=== PATIENT | male | born 1960 | race Caucasian/White ===

== ENCOUNTER 2023-05-14 20:50 | Inpatient (IN) | payer OTHER ==
[2023-05-14 09:38] VITALS: BMI 27.2
[2023-05-14] MEDS ORDERED: hydrOXYzine PAMOATE 25 MG CAPSULE (FP) PO PRN (21:50)
[2023-05-14] MEDS ORDERED: NALOXONE HCL 0.4 MG/ML VIAL IM PRN (21:50)
[2023-05-14] MEDS ORDERED: MAGNESIUM HYDROX 2400MG/30ML ORAL SUSPENSION 30 ML CUP PO PRN (21:50)
[2023-05-14] MEDS ORDERED: NALOXONE HCL (KLOXXADO) 8 MG SPRAY NS PRN (21:50)
[2023-05-14] MEDS ORDERED: MAG HYDROX/AL HYDROX/SIMETH 30 ML UNIT-DOSE CUP PO PRN (21:50)
[2023-05-14] MEDS ORDERED: NICOTINE POLACRILEX 2 MG GUM BUC PRN (21:50)
[2023-05-14] MEDS ORDERED: BENZONATATE 200 MG CAPSULE PO PRN (21:50)
[2023-05-14] MEDS ORDERED: IBUPROFEN 600 MG TABLET (FP) PO PRN (21:50)
[2023-05-14] MEDS ORDERED: guaiFENesin 600 MG TABLET.ER (FP) PO PRN (21:50)
[2023-05-14] MEDS ORDERED: BISMUTH SUBSALICYLATE 524 MG/30 ML PO PRN (21:50)
[2023-05-14] MEDS ORDERED: BENZOCAINE/MENTHOL (CHLORASEPTIC ) LOZENGE MM PRN (21:50)
[2023-05-14] MEDS ORDERED: METHOCARBAMOL 500 MG TABLET PO PRN (21:50)
[2023-05-14] MEDS ORDERED: ONDANSETRON *ODT* 4 MG TABLET SL PRN (21:50)
[2023-05-14] MEDS ORDERED: POLYETHYLENE GLYCOL (HEALTHYLAX) 3350 17 GM PACKET PO PRN (21:50)
[2023-05-14] MEDS ORDERED: LOPERAMIDE HCL 2 MG CAPSULE PO PRN (21:50)
[2023-05-14] MEDS ORDERED: IBUPROFEN 400 MG TABLET (FP) PO PRN (21:50)
[2023-05-14] MEDS ORDERED: ACETAMINOPHEN 325 MG TABLET (FP) PO PRN (21:50)
[2023-05-14] MEDS ORDERED: chlordiazePOXIDE HCL 25 MG CAPSULE PO PRN (21:53)
[2023-05-14] MEDS ORDERED: cloNIDine HCL 0.1 MG TABLET PO ONE (22:06)
[2023-05-14] MEDS ORDERED: TRIMETHOBENZAMIDE HCL 200MG/2ML INJ IM ONE (22:40)
[2023-05-14] MEDS: MELATONIN 5 MG TABLETS PO SCH (22:41)
[2023-05-14] MEDS: THIAMINE HCL 100 MG TABLET (FP) PO SCH (22:41)
[2023-05-14] MEDS ORDERED: chlordiazePOXIDE HCL 25 MG CAPSULE ONE (22:42)
[2023-05-14] MEDS: chlordiazePOXIDE HCL 25 MG CAPSULE PO SCH (22:49)
[2023-05-14] MEDS ORDERED: NITROFURANTOIN MACROCRYSTAL 50 MG CAPSULE (FP) PO ONE (23:30)
[2023-05-15] MEDS: chlordiazePOXIDE HCL 25 MG CAPSULE PO SCH ×2 (05:10→10:21)
[2023-05-15] MEDS ORDERED: PRENATAL VITAMINS W/ FOLIC ACID TABLET (FP) PO SCH (10:00)
[2023-05-15] MEDS ORDERED: NICOTINE 21 MG/24 HOURS TOPICAL PATCH TD SCH (10:00)
[2023-05-15 10:59] LABS: CHLORIDE 99 mmol/L (98-107); SODIUM 139 mmol/L (136-145)
[2023-05-15 11:01] LABS: ALBUMIN 2.6 g/dl (3.4-5.0); BLOOD UREA NITROGEN 6.4 mg/dL (7-18); CO2 33 mmol/L (21-32); GLUCOSE,RANDOM 112 mg/dL (74-106)
[2023-05-15 11:02] LABS: HEMATOCRIT 30.5 % (35.4-49); HEMOGLOBIN 10.5 GM/dL (11.7-16.9); MCH 35.5 pg (25.7-33.7); MCHC 34.4 g/dl (32.0-35.9); MEAN CELL VOLUME 103.1 fl (80-96); MEAN PLT VOLUME 7.7 fl (7.5-11.1); PLATELET COUNT 110 10^3/uL (134-434); RBC 2.96 M/mm3 (4.00-5.60); RDW 16.7 % (11.9-15.9); WHITE BLOOD COUNT 2.4 K/mm3 (4.0-10.0)
[2023-05-15 11:04] LABS: CREATININE 0.9 mg/dL (0.55-1.3); SGOT/AST 216 U/L (15-37); SGPT/ALT 102 U/L (13-61)
[2023-05-15 11:06] LABS: BILIRUBIN,TOTAL 2.4 mg/dL (0.2-1); TOT PROT 5.6 g/dl (6.4-8.2)
[2023-05-15 11:07] LABS: ALK PHOS 101 U/L (45-117)
[2023-05-15 11:16] LABS: ANION GAP 7 mmol/L (4-13); POTASSIUM 2.3 mmol/L (3.5-5.1)
[2023-05-15] MEDS ORDERED: POTASSIUM CHLORIDE ORAL LIQUID 20 MEQ/15 ML PO ONE (11:31)
[2023-05-15] MEDS ORDERED: diazePAM 5 MG TABLET PO PRN (12:15)
[2023-05-15] MEDS: diazePAM 5 MG TABLET PO SCH ×2 (17:28→22:11)
[2023-05-15 20:56] VITALS: BP 156/90; PULSE 112; RESP 16; TEMP 98.4
[2023-05-15] MEDS ORDERED: POTASSIUM CHLORIDE ORAL LIQUID 20 MEQ/15 ML PO SCH (22:00)
[2023-05-15] MEDS: MELATONIN 5 MG TABLETS PO SCH (22:12)
[2023-05-15] MEDS: THIAMINE HCL 100 MG TABLET (FP) PO SCH (22:12)
[2023-05-16] MEDS ORDERED: chlordiazePOXIDE HCL 25 MG CAPSULE PO SCH (05:00)
[2023-05-16] MEDS ORDERED: amLODIPine BESYLATE 2.5 MG TABLET (FP) PO SCH (10:00)
[2023-05-17] MEDS ORDERED: chlordiazePOXIDE HCL 10 MG CAPSULE PO PRN
[2023-05-17] MEDS ORDERED: chlordiazePOXIDE HCL 10 MG CAPSULE PO SCH (05:00)
[2023-05-17] MEDS ORDERED: diazePAM 5 MG TABLET PO SCH (06:00)
[2023-05-18] MEDS ORDERED: chlordiazePOXIDE HCL 10 MG CAPSULE PO SCH (05:00)
[2023-05-18] MEDS ORDERED: diazePAM 5 MG TABLET PO SCH (10:00)
[2023-05-19] MEDS ORDERED: chlordiazePOXIDE HCL 10 MG CAPSULE PO ONE (05:00)
[2023-05-19] MEDS ORDERED: diazePAM 5 MG TABLET PO ONE (06:00)
== END 2023-05-15 11:25 | disposition short-term general hospital (02) | DRG 775 ==
LOC: YASAS 20:50 → Y3N 22:58
PROVIDERS: ADMIT Allergy & Immunology; ATTEND Surgery
PROC: HZ2ZZZZ Detoxification Services for Substance Abuse Treatment (ICD-10-PCS; principal; 2023-05-14)
DX: F10.230 Alcohol dependence with withdrawal, uncomplicated (principal); F17.210 Nicotine dependence, cigarettes, uncomplicated; B18.2 Chronic viral hepatitis C; I10 Essential (primary) hypertension; N30.01 Acute cystitis with hematuria; R11.10 Vomiting, unspecified; R60.0 Localized edema; Z86.11 Personal history of tuberculosis
CPT/HCPCS: 36415; 71046-TC-FY; 80053; 80307; 81003; 82803; 82962; 83880; 85025; 85027; 85610; 86780; 87086; 87635; 93005; 93010; 99284-25

== ENCOUNTER 2023-05-15 23:41 | Observation (INO) | payer OTHER ==
[2023-05-16] MEDS ORDERED: POTASSIUM CHLORIDE TABS 20 MEQ TABLET.ER (FP) PO ONE ×4 (00:06→19:45)
[2023-05-16] MEDS ORDERED: diazePAM CARPU-JECT 10 MG/2 ML DISP.SYRIN IVPUSH ONE ×2 (00:06→03:16)
[2023-05-16] MEDS ORDERED: diazePAM CARPU-JECT 10 MG/2 ML DISP.SYRIN ONE ×2 (00:10→03:19)
[2023-05-16 00:52] LABS: BASO % 0.3 % (0-2.0); HEMATOCRIT 33.6 % (35.4-49); HEMOGLOBIN 11.5 GM/dL (11.7-16.9); LYMPH % 16.8 % (8-40); MCH 35.4 pg (25.7-33.7); MCHC 34.2 g/dl (32.0-35.9); MEAN CELL VOLUME 103.5 fl (80-96); MEAN PLT VOLUME 6.9 fl (7.5-11.1); MONO % 9.1 % (3.8-10.2); NEUT % 71.8 % (42.8-82.8); PLATELET COUNT 113 10^3/uL (134-434); RBC 3.24 M/mm3 (4.00-5.60); RDW 17.2 % (11.9-15.9); WHITE BLOOD COUNT 2.4 K/mm3 (4.0-10.0)
[2023-05-16 02:17] LABS: CHLORIDE 104 mmol/L (98-107); SODIUM 137 mmol/L (136-145)
[2023-05-16 02:19] LABS: CALCIUM 8.2 mg/dL (8.5-10.1)
[2023-05-16 02:20] LABS: ALBUMIN 2.7 g/dl (3.4-5.0); CO2 30 mmol/L (21-32); GLUCOSE,RANDOM 132 mg/dL (74-106); MAGNESIUM 1.3 mg/dL (1.8-2.4)
[2023-05-16 02:23] LABS: CREATININE 0.8 mg/dL (0.55-1.3); PHOSPHOROUS 1.6 mg/dL (2.5-4.9); SGOT/AST 325 U/L (15-37); SGPT/ALT 122 U/L (13-61)
[2023-05-16 02:24] LABS: TOT PROT 6.1 g/dl (6.4-8.2)
[2023-05-16 02:25] LABS: BILIRUBIN,TOTAL 3.3 mg/dL (0.2-1)
[2023-05-16 02:26] LABS: ALK PHOS 109 U/L (45-117)
[2023-05-16 02:30] LABS: ANION GAP 3 mmol/L (4-13); BLOOD UREA NITROGEN 6.2 mg/dL (7-18); POTASSIUM 2.9 mmol/L (3.5-5.1)
[2023-05-16] MEDS ORDERED: NAPH,MB-DB/K PH,MBDB POWDER PACKET PO ONE (02:30)
[2023-05-16] MEDS ORDERED: NAPH,MB-DB/K PH,MBDB POWDER PACKET ONE ×3 (03:06→20:26)
[2023-05-16] MEDS ORDERED: KCL 10 MEQ IVPB 10 MEQ/100 ML INFUS.BAG IVPB ONE (03:07)
[2023-05-16] MEDS ORDERED: MAGNESIUM SULFATE IN WATER 2 GM/50 ML IVPB IVPB ONE (03:07)
[2023-05-16] MEDS: KCL 10 MEQ IVPB 10 MEQ/100 ML INFUS.BAG IVPB SCH ×5 (03:27→19:38)
[2023-05-16] MEDS ORDERED: diazePAM 5 MG TABLET ONE ×5 (06:25→22:12)
[2023-05-16] MEDS: diazePAM 5 MG TABLET PO SCH ×4 (06:30→22:19)
[2023-05-16] MEDS ORDERED: FUROSEMIDE 40 MG/4 ML INJECTABLE VIAL IVPUSH SCH (06:45)
[2023-05-16] MEDS ORDERED: FUROSEMIDE 40 MG/4 ML INJECTABLE VIAL ONE (06:52)
[2023-05-16 06:54] LABS: HEMATOCRIT 32.9 % (35.4-49); HEMOGLOBIN 10.9 GM/dL (11.7-16.9); MCH 34.9 pg (25.7-33.7); MCHC 33.1 g/dl (32.0-35.9); MEAN CELL VOLUME 105.3 fl (80-96); MEAN PLT VOLUME 7.1 fl (7.5-11.1); PLATELET COUNT 116 10^3/uL (134-434); RBC 3.13 M/mm3 (4.00-5.60); RDW 17.4 % (11.9-15.9); WHITE BLOOD COUNT 2.5 K/mm3 (4.0-10.0)
[2023-05-16 07:03] LABS: CHLORIDE 103 mmol/L (98-107); SODIUM 138 mmol/L (136-145)
[2023-05-16 07:05] LABS: CALCIUM 8.2 mg/dL (8.5-10.1)
[2023-05-16 07:06] LABS: ALBUMIN 2.7 g/dl (3.4-5.0); BLOOD UREA NITROGEN 6.4 mg/dL (7-18); CO2 33 mmol/L (21-32); GLUCOSE,RANDOM 115 mg/dL (74-106); MAGNESIUM 1.8 mg/dL (1.8-2.4)
[2023-05-16 07:09] LABS: CREATININE 0.7 mg/dL (0.55-1.3); PHOSPHOROUS 1.8 mg/dL (2.5-4.9); SGOT/AST 321 U/L (15-37); SGPT/ALT 120 U/L (13-61)
[2023-05-16 07:11] LABS: BILIRUBIN,TOTAL 3.4 mg/dL (0.2-1); TOT PROT 5.7 g/dl (6.4-8.2)
[2023-05-16 07:12] LABS: ALK PHOS 104 U/L (45-117)
[2023-05-16 07:22] LABS: ANION GAP 3 mmol/L (4-13); POTASSIUM 2.8 mmol/L (3.5-5.1)
[2023-05-16] MEDS ORDERED: ENOXAPARIN NA (PORCINE) 40 MG/0.4 ML DISP.SYRIN SQ ONE (12:11)
[2023-05-16] MEDS ORDERED: amLODIPine BESYLATE 2.5 MG TABLET (FP) ONE (12:11)
[2023-05-16] MEDS: ENOXAPARIN NA (PORCINE) 40 MG/0.4 ML DISP.SYRIN SQ SCH (12:16)
[2023-05-16] MEDS: amLODIPine BESYLATE 2.5 MG TABLET (FP) PO SCH (12:17)
[2023-05-16 13:23] LABS: CHLORIDE 100 mmol/L (98-107); SODIUM 137 mmol/L (136-145)
[2023-05-16 13:29] LABS: BLOOD UREA NITROGEN 5.7 mg/dL (7-18); CALCIUM 8.3 mg/dL (8.5-10.1); CO2 34 mmol/L (21-32); GLUCOSE,RANDOM 117 mg/dL (74-106)
[2023-05-16 13:32] LABS: ALBUMIN 2.8 g/dl (3.4-5.0)
[2023-05-16 13:33] LABS: CREATININE 0.7 mg/dL (0.55-1.3); SGOT/AST 289 U/L (15-37); SGPT/ALT 124 U/L (13-61)
[2023-05-16 13:34] LABS: TOT PROT 5.9 g/dl (6.4-8.2)
[2023-05-16 13:36] LABS: ALK PHOS 109 U/L (45-117)
[2023-05-16 13:40] LABS: BILIRUBIN,TOTAL 3.4 mg/dL (0.2-1)
[2023-05-16 13:55] LABS: ANION GAP 3 mmol/L (4-13); POTASSIUM 2.8 mmol/L (3.5-5.1)
[2023-05-16] MEDS ORDERED: AMPICILLIN NA/SULBACTAM NA 3 GM VIAL ONE ×2 (16:07→20:26)
[2023-05-16] MEDS ORDERED: POTASSIUM CHLORIDE TABS 10 MEQ TABLET.ER (FP) PO SCH (16:45)
[2023-05-16] MEDS: NAPH,MB-DB/K PH,MBDB POWDER PACKET PO SCH ×2 (17:10→22:03)
[2023-05-16] MEDS: AMPICILLIN NA/SULBACTAM NA 3 GM in SODIUM CHLORIDE 100 ML IVPB SCH ×2 (17:12→22:03)
[2023-05-16] MEDS: POTASSIUM CHLORIDE TABS 20 MEQ TABLET.ER (FP) PO SCH (17:12)
[2023-05-16] MEDS ORDERED: POTASSIUM CHLORIDE ORAL LIQUID 20 MEQ/15 ML PO ONE (19:00)
[2023-05-17] MEDS: AMPICILLIN NA/SULBACTAM NA 3 GM in SODIUM CHLORIDE 100 ML IVPB SCH ×5 (03:25→22:42)
[2023-05-17] MEDS ORDERED: AMPICILLIN NA/SULBACTAM NA 3 GM VIAL ONE ×2 (05:43→09:22)
[2023-05-17] MEDS: diazePAM 5 MG TABLET PO SCH ×3 (06:14→22:40)
[2023-05-17] MEDS: NAPH,MB-DB/K PH,MBDB POWDER PACKET PO SCH ×3 (06:14→22:40)
[2023-05-17] MEDS ORDERED: NAPH,MB-DB/K PH,MBDB POWDER PACKET ONE ×2 (06:15→13:23)
[2023-05-17] MEDS ORDERED: diazePAM 5 MG TABLET ONE ×2 (06:15→13:23)
[2023-05-17 09:12] LABS: BASO % 0.7 % (0-2.0); EOS % 3.3 % (0-4.5); HEMATOCRIT 35.3 % (35.4-49); HEMOGLOBIN 11.4 GM/dL (11.7-16.9); LYMPH % 20.9 % (8-40); MCH 34.5 pg (25.7-33.7); MCHC 32.4 g/dl (32.0-35.9); MEAN CELL VOLUME 106.5 fl (80-96); MEAN PLT VOLUME 7.3 fl (7.5-11.1); MONO % 11.7 % (3.8-10.2); NEUT % 63.4 % (42.8-82.8); PLATELET COUNT 122 10^3/uL (134-434); RBC 3.31 M/mm3 (4.00-5.60); RDW 17.4 % (11.9-15.9); WHITE BLOOD COUNT 2.3 K/mm3 (4.0-10.0)
[2023-05-17] MEDS: POTASSIUM CHLORIDE TABS 20 MEQ TABLET.ER (FP) PO SCH (10:13)
[2023-05-17] MEDS: amLODIPine BESYLATE 2.5 MG TABLET (FP) PO SCH (10:14)
[2023-05-17] MEDS: ENOXAPARIN NA (PORCINE) 40 MG/0.4 ML DISP.SYRIN SQ SCH (10:14)
[2023-05-17 10:15] LABS: ANISOCYTOSIS 0; MACROCYTOSIS 2+
[2023-05-17 11:34] LABS: CREATININE 0.9 mg/dL (0.55-1.3); GLUCOSE,RANDOM 95 mg/dL (74-106)
[2023-05-17 11:35] LABS: CALCIUM 8.1 mg/dL (8.5-10.1); CHLORIDE 104 mmol/L (98-107); CO2 24 mmol/L (21-32); POTASSIUM 3.8 mmol/L (3.5-5.1); SODIUM 144 mmol/L (136-145)
[2023-05-17 11:38] LABS: ALBUMIN 2.7 g/dl (3.4-5.0); MAGNESIUM 1.8 mg/dL (1.8-2.4); TOT PROT 6.1 g/dl (6.4-8.2)
[2023-05-17 11:39] LABS: ALK PHOS 108 U/L (45-117); BILIRUBIN,TOTAL 3.4 mg/dL (0.2-1); SGOT/AST 280 U/L (15-37); SGPT/ALT 124 U/L (13-61)
[2023-05-17] MEDS ORDERED: FUROSEMIDE 40 MG TABLET (FP) PO ONE (16:04)
[2023-05-17] MEDS ORDERED: FUROSEMIDE 40 MG TABLET (FP) ONE (17:07)
[2023-05-17 18:56] VITALS: BMI 38.7
[2023-05-17] MEDS ORDERED: POTASSIUM CHLORIDE ORAL LIQUID 20 MEQ/15 ML PO ONE ×2 (20:00→22:45)
[2023-05-18] MEDS: AMPICILLIN NA/SULBACTAM NA 3 GM in SODIUM CHLORIDE 100 ML IVPB SCH ×3 (02:51→14:41)
[2023-05-18] MEDS: diazePAM 5 MG TABLET PO PRN ×3 (02:55→22:21)
[2023-05-18] MEDS: NAPH,MB-DB/K PH,MBDB POWDER PACKET PO SCH ×3 (06:18→22:02)
[2023-05-18] MEDS: diazePAM 5 MG TABLET PO SCH ×2 (06:19→17:03)
[2023-05-18 08:22] LABS: CHLORIDE 103 mmol/L (98-107); SODIUM 139 mmol/L (136-145)
[2023-05-18 08:25] LABS: ALBUMIN 2.5 g/dl (3.4-5.0); BLOOD UREA NITROGEN 7.6 mg/dL (7-18); CALCIUM 8.3 mg/dL (8.5-10.1); CO2 31 mmol/L (21-32); GLUCOSE,RANDOM 100 mg/dL (74-106)
[2023-05-18 08:28] LABS: CREATININE 0.8 mg/dL (0.55-1.3); SGOT/AST 242 U/L (15-37); SGPT/ALT 117 U/L (13-61)
[2023-05-18 08:30] LABS: BILIRUBIN,TOTAL 2.4 mg/dL (0.2-1); TOT PROT 5.5 g/dl (6.4-8.2)
[2023-05-18 08:31] LABS: ALK PHOS 103 U/L (45-117)
[2023-05-18 08:46] LABS: ANION GAP 5 mmol/L (4-13); POTASSIUM 2.9 mmol/L (3.5-5.1)
[2023-05-18] MEDS ORDERED: MAGNESIUM SULF 50% (8.12 MEQ/2 ML-1 GM VIAL) IVPB ONE (09:30)
[2023-05-18] MEDS: ENOXAPARIN NA (PORCINE) 40 MG/0.4 ML DISP.SYRIN SQ SCH (10:15)
[2023-05-18] MEDS: POTASSIUM CHLORIDE TABS 20 MEQ TABLET.ER (FP) PO SCH ×2 (10:20→17:02)
[2023-05-18] MEDS: amLODIPine BESYLATE 2.5 MG TABLET (FP) PO SCH (10:21)
[2023-05-18] MEDS: POTASSIUM CHLORIDE 40 MEQ in SODIUM CHLORIDE 0.45% 1,000 ML IV SCH ×2 (11:41→12:45)
[2023-05-18] MEDS ORDERED: POTASSIUM CHLORIDE TABS 20 MEQ TABLET.ER (FP) PO SCH (15:30)
[2023-05-18] MEDS: AMOX TR/POT CLAV 500MG/125MG TABLETS (FP) PO SCH (17:03)
[2023-05-18] MEDS ORDERED: LOPERAMIDE HCL 2 MG CAPSULE PO ONE (22:08)
[2023-05-19] MEDS ORDERED: LOPERAMIDE HCL 2 MG CAPSULE PO ONE (00:41)
[2023-05-19] MEDS: NAPH,MB-DB/K PH,MBDB POWDER PACKET PO SCH ×2 (05:48→12:56)
[2023-05-19] MEDS ORDERED: diazePAM 5 MG TABLET PO ONE (06:00)
[2023-05-19 07:19] LABS: POTASSIUM 3.3 mmol/L (3.5-5.1)
[2023-05-19 07:21] LABS: ALBUMIN 2.5 g/dl (3.4-5.0); BLOOD UREA NITROGEN 6.8 mg/dL (7-18)
[2023-05-19 07:23] LABS: BILIRUBIN,DIRECT 1.2 mg/dL (0.0-0.2); CREATININE 0.7 mg/dL (0.55-1.3)
[2023-05-19 07:26] LABS: BILIRUBIN,TOTAL 1.9 mg/dL (0.2-1); TOT PROT 5.5 g/dl (6.4-8.2)
[2023-05-19] MEDS: AMOX TR/POT CLAV 500MG/125MG TABLETS (FP) PO SCH (08:09)
[2023-05-19] MEDS: POTASSIUM CHLORIDE TABS 20 MEQ TABLET.ER (FP) PO SCH (08:09)
[2023-05-19] MEDS ORDERED: LACTATED RINGERS SOLUTION 1,000 ML/1,000 ML INFUS.BAG IV SCH (08:45)
[2023-05-19 10:03] VITALS: RESP 18
[2023-05-19 10:08] VITALS: BP 146/93; PULSE 97; TEMP 98.4
[2023-05-19] MEDS: ENOXAPARIN NA (PORCINE) 40 MG/0.4 ML DISP.SYRIN SQ SCH (10:42)
[2023-05-19] MEDS: amLODIPine BESYLATE 2.5 MG TABLET (FP) PO SCH (10:43)
[2023-05-19] MEDS ORDERED: POTASSIUM CHLORIDE TABS 20 MEQ TABLET.ER (FP) PO ONE (12:16)
[2023-05-19] MEDS ORDERED: LACTOBACILLUS ACIDOPHILUS 1 TABLET PO ONE ×2 (12:17→22:00)
== END 2023-05-19 13:10 | disposition home or self-care (01) ==
LOC: JER 23:41 → UNDOADMOB 05-16 02:29 → JERBED 05-16 02:29 → INTOOBSV 05-16 02:29 → JERBED 05-16 05:16 → J4W 05-17 18:30
PROVIDERS: ADMIT Internal Medicine; ATTEND Internal Medicine
PROC: 3E03329 Introduction of Other Anti-infective into Peripheral Vein, Percutaneous Approach (ICD-10-PCS; principal; 2023-05-16)
PROC: 3E033NZ Introduction of Analgesics, Hypnotics, Sedatives into Peripheral Vein, Percutaneous Approach (ICD-10-PCS; 2023-05-16)
PROC: 3E023GC Introduction of Other Therapeutic Substance into Muscle, Percutaneous Approach (ICD-10-PCS; 2023-05-16)
PROC: 3E033GC Introduction of Other Therapeutic Substance into Peripheral Vein, Percutaneous Approach (ICD-10-PCS; 2023-05-16)
PROC: 3E0337Z Introduction of Electrolytic and Water Balance Substance into Peripheral Vein, Percutaneous Approach (ICD-10-PCS; 2023-05-16)
DX: F10.230 Alcohol dependence with withdrawal, uncomplicated (principal); I11.9 Hypertensive heart disease without heart failure; I1A.0 Resistant hypertension; E87.6 Hypokalemia; I87.2 Venous insufficiency (chronic) (peripheral); L53.8 Other specified erythematous conditions; F17.200 Nicotine dependence, unspecified, uncomplicated
CPT/HCPCS: 36415; 76705-TC; 80053; 82248; 83735; 84100; 85025; 85027; 87522; 93005; 93010; 93306-TC; 96361; 96365; 96366; 96367; 96372; 96375; 96376; 99285-25; G0378